=== PATIENT | male | born 1995 | race Two or more races ===

== ENCOUNTER 2016-05-13 14:13 | Emergency (ER) | payer BC, OTHER ==
[~2016-05-13] VITALS: Ht 193 cm; Wt 72.6 kg
[2016-05-13 16:01] VITALS: BP 131/73
[2016-05-13] MEDS ORDERED: cefTRIAXone W LIDOCAINE 1 GM IM IM ONE (16:30)
== END 2016-05-13 16:58 | disposition home or self-care (01) ==
LOC: ER 14:26
DX: J32.9 Chronic sinusitis, unspecified (principal)
CPT/HCPCS: 96372; 99283; J0696